=== PATIENT | female | born 1955 | race American Indian/Alaskan Native ===

== ENCOUNTER 2017-05-08 15:43 | Observation (INO) | payer BC ==
--- NOTE | 2017-05-08 16:14 | ED PDOC ---
Arrival/HPI - General Time Seen by Provider: 05/08/17 15:57 Historian: Patient - History of Present Illness Narrative History of Present Illness (Text): 05/08/17 16:01 61 y/o female, pmh including PE/DVT/Sarcoidosis/DM/HTN/CHF/, nkda, c/o coughing/ fatigue x 2-3 weeks. Pt. stated that she has chronic history of dvt/pe which she is on the coumadin for her entire life with the last INR between 2-3 about 1 week ago by a hematology/oncologist from [facility] [place]. Pt. stated that she has been coughing with clear and green phlegm for the past 2-3 weeks which she has been seen by Dr. Araujo which she completed the course of prednisone 20mg/daily and a cephalosporin oral antibiotic course at home with no relief, was feeling fatigue but no dizziness. Pt. stated that she does admits that her bilateral leg been accumulating fluids for the past 2-3 weeks as well but no calf pain, admits decrease appetize and decrease energy today which she feels dizziness earlier due to the decrease appetite, no palpitation, no chest pain, no night sweat, no rash, no other medical or psychological complaints. Past Medical History - Provider Review Nursing Documentation Reviewed: Yes - Pulmonary Hx Respiratory Disorders: Yes (sarcoidosis) Other/Comment: sarcoidosis - HEENT Hx Glaucoma: Yes (left eye) Other/Comment: sarcoid right eye - Endocrine/Metabolic Hx Diabetes Mellitus Type 2: Yes (BORDERLINE) - Hematological/Oncological Hx Anemia: Yes - Musculoskeletal/Rheumatological Hx Falls: No - Psychiatric Hx Depression: Yes Hx Substance Use: No - Surgical History Hx Cholecystectomy: Yes Other/Comment: - Suicidal Assessment Feels Threatened In Home Enviroment: No Family/Social History - Physician Review Nursing Documentation Reviewed: Yes Family/Social History: Unknown Family HX Smoking Status: Never Smoked Hx Alcohol Use: Yes (SOCIALLY) Hx Substance Use: No Allergies/Home Meds Allergies/Adverse Reactions: Allergies No Known Allergies Allergy (Verified 04/13/15 19:55) Home Medications: Home Meds Medication Instructions Recorded Confirmed Furosemide [Lasix] 20 mg PO DAILY 02/28/12 05/08/17 Folic Acid [Folic Acid] 1 mg PO DAILY 04/13/15 05/08/17 RX: Methotrexate Sodium 1 tab PO DAILY 04/13/15 05/08/17 [Rheumatrex] RX: Valsartan [Diovan] 160 mg PO DAILY 05/08/17 05/08/17 SITagliptin [Januvia] 1 tab PO DAILY 05/08/17 05/08/17 Review of Systems - Review of Systems Constitutional: Fatigue. absent: Fevers Eyes: absent: Vision Changes ENT: absent: Hearing Changes Respiratory: Cough, Sputum. absent: SOB, Wheezing Cardiovascular: Edema. absent: Chest Pain Gastrointestinal: absent: Abdominal Pain, Diarrhea, Nausea, Vomiting Skin: absent: Rash, Pruritis Neurological: absent: Headache, Dizziness, Focal Weakness, Gait Changes, Speech Changes Physical Exam Vital Signs Reviewed: Yes Vital Signs Temp Pulse Resp BP Pulse Ox 05/08/17 20:14 82 18 109/65 98 05/08/17 18:47 81 18 120/79 97 05/08/17 17:41 85 20 118/75 97 05/08/17 16:02 97.9 F 106 H 18 106/64 96 Temperature: Afebrile Blood Pressure: Normal Pulse: Tachycardic Respiratory Rate: Normal Appearance: Positive for: Well-Appearing, Non-Toxic, Comfortable Pain Distress: None Mental Status: Positive for: Alert and Oriented X 3 - Systems Exam Head: Present: Atraumatic, Normocephalic Pupils: Present: PERRL Extroacular Muscles: Present: EOMI Conjunctiva: Present: Normal Mouth: Present: Moist Mucous Membranes Neck: Present: Normal Range of Motion Respiratory/Chest: Present: Clear to Auscultation, Good Air Exchange. No: Respiratory Distress, Accessory Muscle Use Cardiovascular: Present: Regular Rate and Rhythm, Normal S1, S2, Other (1+ bilateral pedal edema). No: Murmurs Abdomen: Present: Normal Bowel Sounds. No: Tenderness, Distention, Peritoneal Signs, Rebound, Guarding Back: Present: Normal Inspection Upper Extremity: Present: Normal Inspection. No: Cyanosis, Edema Lower Extremity: Present: Normal Inspection. No: Edema Neurological: Present: GCS=15, Speech Normal, Motor Func Grossly Intact, Memory Normal, Other (no drift, normal finger to nose test, normal heel to garcia test. ) Skin: Present: Warm, Dry, Normal Color. No: Rashes Psychiatric: Present: Alert, Oriented x 3, Normal Insight, Normal Concentration Medical Decision Making ED Course and Treatment: 05/08/17 16:22 Pneumonia vs. CHF vs. Subtherapeutic INR induced worsening of the PE vs. URI -labs/bnp/cardiac enzyme/pt/ptt -ekg/cxr -cardiac monitor technician -observe and reassess 05/08/17 17:55 -NSR @ 97 BPM, no acute ST or T wave changes compared with previous ekg. -Chest x-ray: No acute infiltrate. Consistent with right paratracheal and bilateral hilar lymphadenopathy. -Labs are non-significant except BUN 26, INR 1.68. IVF @ 125cc/hr ordered. -INR is subtherapeutic 1.68, currently on coumadin 12mg and 6mg alternating every other day. -Pt. stated that she feels very fatigue and tired, too fatigue to walk and feels dizziness, feeling will pass out, unable to follow up with the pmd, will observe the patient over night. 05/08/17 19:05 - and the daughter is on the bed side with the patient, expressed my concern about the patient's status and recommend observation plan, pt. agreed to stay. -Pt. has on and off tachycardic, will put on the remote tele. 05/08/17 19:19 -UA show no UTI. -I spoke to Dr. Marmolejo about the case, labs/radiology result discussed, agreed that the patient needs to be observed. -I discussed with Dr. Green about case, and he agreed on the dispo. - Lab Interpretations Lab Results: 05/08/17 16:50 05/08/17 16:50 Lab Results 05/08/17 16:50: WBC 7.9 D, RBC 4.30, Hgb 13.3, Hct 39.8, MCV 92.6, MCH 30.9, MCHC 33.4, RDW 15.8 H, Plt Count 329, MPV 9.5, Gran % 48.1 L, Lymph % (Auto) 19.5 L, [place]ura % (Auto) 18.0 H, Eos % (Auto) 13.4 H, Baso % (Auto) 1.0, Gran # 3.78, Lymph # 1.5, Ventura # 1.4 H, Eos # 1.1 H, Baso # 0.08 05/08/17 16:50: Sodium 143, Potassium 4.3, Chloride 104, Carbon Dioxide 31, Anion Gap 12, BUN 26 H, Creatinine 1.3, Est GFR ( Amer) 50, Est GFR (Non- Af Amer) 42, Random Glucose 110, Calcium 9.7, Total Bilirubin 0.5, AST 41 H, ALT 45, Alkaline Phosphatase 88, Lactate Dehydrogenase 880 H, Total Creatine Kinase 136, Troponin I < 0.01 D, NT-Pro-B Natriuret Pep 40.7, Total Protein 8.0 , Albumin 3.9, Globulin 4.1, Albumin/Globulin Ratio 1.0 L 05/08/17 16:50: PT 18.1 H, INR 1.68 H, APTT 34.8 H 05/08/17 16:09: POC Glucose (mg/dL) 130 H I have reviewed the lab results: Yes Interpretation: Abnormal lab values (BUN 26, INR 1.68) - RAD Interpretation Radiology Orders: 05/08/17 16:14 CHEST PORTABLE [RAD] Stat Helicopter Repairer: Radiologist - EKG Interpretation EKG Interpretation (Text): 05/08/17 16:34 NSR @ 97 BPM, no acute ST or T wave changes compared with previous ekg. Interpreted by ED Physician: Yes Type: 12 lead EKG Comparison: Com.w/previous EKG - Medication Orders Current Medication Orders: Sodium Chloride (Sodium Chloride 0.9%) 1,000 mls @ 100 mls/hr IV .Q10H SINA Last Admin: 05/08/17 18:05 Dose: 100 mls/hr Discontinued Medications Albuterol Sulfate (Albuterol 0.083% Inhal Rita (2.5 Mg/3 Ml) Ud) 2.5 mg INH STAT STA Stop: 05/08/17 16:50 Last Admin: 05/08/17 18:04 Dose: - PA / [employer] BI DEVELOPER / Resident Statement MD/DO has reviewed & agrees with the documentation as recorded. Disposition/Present on Arrival - Present on Arrival Any Indicators Present on Arrival: No History of DVT/PE: Yes History of Uncontrolled Diabetes: No Urinary Catheter: No History of Decub. Ulcer: No History Surgical Site Infection Following: None - Disposition Have Diagnosis and Disposition been Completed?: Yes Diagnosis: Dehydration, Fatigue, Subtherapeutic international normalized ratio (INR), Cough Disposition: HOSPITALIZED Disposition Time: 17:58 Patient Plan: Observation, Telemetry Patient Problems: Current Active Problems Problem Status Onset Dehydration Acute Fatigue Acute Subtherapeutic international normalized ratio (INR) Acute Cough Acute Condition: STABLE
[2017-05-08 16:25] VITALS: BMI 40.7
[2017-05-08 17:05] LABS: BASO # 0.08 K/mm3 (0.0-2.0); EOS # 1.1 (0.0-0.7); EOS % 13.4 % (1.5-5.0); GRAN # 3.78 (1.4-6.5); GRAN % 48.1 % (50.0-68.0); HEMATOCRIT 39.8 % (36.0-48.0); LYMPH # 1.5 (1.2-3.4); LYMPH % 19.5 % (22.0-35.0); MEAN CELL VOLUME 92.6 fl (80.0-105.0); MEAN CORPUSCULAR HEMOGLOBIN 30.9 pg (25.0-35.0); MEAN CORPUSCULAR HGB CONC 33.4 g/dl (31.0-37.0); MEAN PLATELET VOLUME 9.5 fl (7.0-11.0); MONO # 1.4 (0.1-0.6); RED CELL DISTRIBUTION WIDTH 15.8 % (11.5-14.5); WHITE BLOOD COUNT 7.9 10^3/ul (4.5-11.0)
[2017-05-08] MEDS: Albuterol 0.083% Inhal Sol (2.5 mg/3 mL) UD INH STA ×2 (17:09→18:04)
[2017-05-08 17:11] LABS: ALKALINE PHOSPHATASE 88 U/L (38-126); ALT/SGPT 45 U/L (7-56); AST/SGOT 41 U/L (14-36); BILIRUBIN,TOTAL 0.5 mg/dL (0.2-1.3); BLOOD UREA NITROGEN 26 mg/dL (7-21); CALCIUM 9.7 mg/dL (8.4-10.5); CARBON DIOXIDE 31 mmol/L (21-33); CHLORIDE 104 mmol/L (98-107); GFR AFRICAN-AMERICAN 50; GLUCOSE,RANDOM 110 mg/dL (70-110); POTASSIUM 4.3 mmol/L (3.6-5.0); SODIUM 143 mmol/L (132-148)
--- NOTE | 2017-05-08 17:13 | CARD ---
APPROVED REPORT EKG Measurement Heart [id number] <Conclusion> Normal sinus rhythm Right bundle branch block Left anterior fascicular block Bifascicular block Abnormal ECG
[2017-05-08 17:22] LABS: INR 1.68 (0.93-1.08); PARTIAL THROMBOPLASTIN TIME 34.8 Seconds (23.7-30.8)
[2017-05-08 17:23] LABS: TROPONIN I < 0.01 ng/mL
--- NOTE | 2017-05-08 17:39 | RAD ---
HISTORY: cough x 2-3 weeks COMPARISON: 04/13/2015 FINDINGS: LUNGS: No infiltrate. PLEURA: No significant pleural effusion identified, no pneumothorax apparent. CARDIOVASCULAR: Normal heart size. Suspect right paratracheal and bilateral hilar lymphadenopathy. OSSEOUS STRUCTURES: No significant abnormalities. VISUALIZED UPPER ABDOMEN: Normal. OTHER FINDINGS: None. IMPRESSION: No acute infiltrate. Consistent with right paratracheal and bilateral hilar lymphadenopathy.
[2017-05-08] MEDS: Sodium Chloride 0.9% 1,000 ML IV SCH (18:05)
[2017-05-08 19:45] LABS: URINE BILIRUBIN NEGATIVE (NEGATIVE); URINE BLOOD NEGATIVE (NEGATIVE); URINE GLUCOSE (UA) NEGATIVE (NEGATIVE); URINE KETONE NEGATIVE (NEGATIVE); URINE LEUKOCYTE ESTERASE NEGATIVE Leu/uL (NEGATIVE); URINE PROTEIN NEGATIVE mg/dL (<30 mg/dL); URINE UROBILINOGEN 0.2 E.U./dL (<1 E.U./dL)
[2017-05-08 19:46] LABS: URINE APPEARANCE CLEAR (CLEAR); URINE COLOR YELLOW (YELLOW)
[2017-05-08] MEDS ORDERED: Promethazine 6.25 MG/5 ML CUP PO PRN (21:48)
[2017-05-09 03:36] VITALS: RESP 20
[2017-05-09 06:46] LABS: ALB/GLOB RATIO 0.9 (1.1-1.8); BILIRUBIN,TOTAL 0.4 mg/dL (0.2-1.3); CALCIUM 9.1 mg/dL (8.4-10.5); POTASSIUM 4.1 mmol/L (3.6-5.0); TOTAL PROTEIN 6.8 g/dL (5.8-8.3)
[2017-05-09] MEDS: Sodium Chloride 0.9% 1,000 ML IV SCH (06:51)
[2017-05-09 06:52] LABS: HEMATOCRIT 36.4 % (36.0-48.0); MEAN CELL VOLUME 92.9 fl (80.0-105.0); MEAN CORPUSCULAR HEMOGLOBIN 30.4 pg (25.0-35.0); MEAN CORPUSCULAR HGB CONC 32.7 g/dl (31.0-37.0); MEAN PLATELET VOLUME 9.5 fl (7.0-11.0); RED CELL DISTRIBUTION WIDTH 16.2 % (11.5-14.5)
[2017-05-09] MEDS: cefTRIAXone 1 gm 1 GM/100 ML BAG IVPB SCH (10:05)
[2017-05-09] MEDS: Promethazine 6.25 MG/5 ML CUP PO SCH ×3 (10:08→17:45)
[2017-05-09] MEDS: Albuterol-Ipratrop 3 mg / 0.5 (3 ml) UD IH SCH ×2 (13:33→20:20)
[2017-05-09] MEDS ORDERED: Enoxaparin 100 mg Syringe SC SCH (15:30)
--- NOTE | 2017-05-09 16:34 | NM ---
VQ scan Technique: 33.0 mCi technetium 99-m technetium 99 M DTPA aerosol. 4.0 mCI technetium 99-m MAA administered intravenously. Comparison: Correlation is made to chest x-ray performed 05/08/17 Findings: Limited study with 4 projections obtained. Hilar clumping of radiotracer may represent underlying COPD. Large ventilation and perfusion defect evident within the right mid lung zone, likely right middle lobe; this defect appears larger on the ventilation portion of the examination. Diminished ventilation is noted at the left lung base without associated perfusion abnormality. No mismatched perfusion defects appreciated. Mild tracheal activity related to the DTPA incidentally noted. Impression: Low probability for pulmonary embolus. Preliminary impression was provided by virtual radiologic.
--- NOTE | 2017-05-09 20:15 | CON ---
DATE: 05/09/2017 PULMONARY CONSULTATION LOCATION: Room 361, bed 2. HISTORY OF PRESENT ILLNESS: The patient is a gianna 61-year-old woman, she has had a history of sarcoidosis, diabetes mellitus, hypertension and congestive heart failure in the past. She also a history of sarcoidosis. She most recently had DVT and pulmonary emboli. She presents to the emergency room today with coughing and fatigue for several weeks. She is on Coumadin for her history of DVT and PE. She has been coughing green and clear phlegm for several weeks as described above. She received prednisone and antibiotics as an outpatient without relief. It is unclear whether there is leg discomfort or not. The chest pain is plus/minus. There are no palpations. She feels weak and unable to carry at her normal activities. PAST MEDICAL HISTORY: Has been described above. FAMILY HISTORY: Negative. SOCIAL HISTORY: Never smokes. No social drinking. No substance abuse. Travel history positive. ALLERGIES: NONE. HOME MEDICATIONS: Lasix, methotrexate, Diovan and Januvia. REVIEW OF SYSTEMS: 1. Diabetes mellitus. 2. Pain from the joints for rheumatologic reasons and/or sarcoidosis. 3. Sarcoidosis. 4. COPD/asthma ? no PFT is noted in the records. PHYSICAL EXAMINATION: GENERAL: She is resting comfortably, tachypneic, with no fever. VITAL SIGNS: Pulse is 90, respiratory rate is 18 to 20, blood pressure is 110/70. HEENT: EYES: PERRLA. EOM is full. Conjunctivae pink. Mucous membranes are injected. NECK: Supple. No JVD. No lymphadenopathy. No bruit. No thyromegaly. No mass. RESPIRATORY AND CHEST: Scattered wheezes throughout both lung bustos, questionable rales. CARDIOVASCULAR: Regular rhythm. S1 and S2, gallop auscultated. ABDOMEN: Soft. Bowel sounds are normoactive, obese. No distention. EXTREMITIES: Revealed no clubbing, cyanosis. There is trace edema. NEUROLOGIC: No focal findings. Lymphadenopathy is not present in the cervical, inguinal, or axillary areas. No supraclavicular masses are noted in that area. LABORATORY STUDIES: At this time, shows the followin. Chest x-ray is not clear, it is underpenetrated, it has what might be consistent to be atelectasis bilaterally or pulmonary vascular congestion. The portable chest x-ray is at poor quality. 2. Laboratory studies show a white count of 6000, hemoglobin of 11.9. INR of 1.68. Sodium 143, BUN 26 to 23. Liver functions: AST 41 decreasing to 30. BMP 40.7. EKG sinus rhythm, nonspecific ST-T wave changes. CLINICAL DIAGNOSES INCLUDE: 1. Respiratory insufficiency. 2. Abnormal chest x-ray, pneumonia versus congestive heart failure versus atelectasis versus recurrent pulmonary emboli. 3. Sarcoidosis. 4. Cardiomegaly. 5. Acute bronchospasm on inhaled bronchodilators, we will add low dose corticosteroid. Overall conditions are have multiple comorbidities. Etiology is not acutely clear at this time, must consider pneumonitis, bronchitis, congestive hear failure, sarcoidosis, atelectasis, recurrent pulmonary embolism, COPD. She will need appropriate workup and treatment. PLAN: In addition to the studies already requested. I have ordered a D-dimer, VQ and bilateral venous Dopplers. The patient should have a good chest x-ray PA and lateral. We will see how is she responds to the current medications and discuss with primary doctor Dr. García, once his note is noted on the chart and orders are placed, when Dr. Araujo returns from vacation, I would like to discuss a longtime treatment of her COPD and sarcoidosis. She requires a new pulmonary function study to evaluate her respiratory status. She will also need to lose a great deal of weight. I would suggest just some clinical habitus, a home polysomnography, I believe that when she is a little more stable, I will ask her more questions and suspect that there is a sleep apnea component to her situation as well. Nothing can be done at this time however. We will see her again in the morning and see how she feels and decide a further intervention is required. Thank you for the opportunity to see this patient. We will follow closely with you. Dakotah Velasquez MD
[2017-05-09] MEDS: Enoxaparin 100 mg Syringe SC SCH (21:46)
--- NOTE | 2017-05-10 06:33 | HP ---
HISTORY OF PRESENT ILLNESS: This is a 61-year-old female who has come into the hospital with cough and fatigue for the past 2 to 3 weeks. She says that her symptoms have become worse. She was not able to see her primary doctor. She has a history of sarcoidosis and has been following with her doctor in [place]. She has no headaches, dizziness, or nausea. She has a history of DVT and PE, hypertension. She had completed a dose of prednisone as well as antibiotics, but did not have much relief. She has been complaining of lower extremity swelling. She has no fevers or chills. No nausea, no vomiting. No abdominal pain or back pain. No dysuria, frequency. REVIEW OF SYSTEMS: All the review of systems are within normal limits except as mentioned. PAST MEDICAL HISTORY: 1. Hypertension. 2. Borderline diabetes. 3. Sarcoidosis. 4. Cutaneous lesions in her eyes secondary to sarcoid. FAMILY HISTORY: Noncontributory. SOCIAL HISTORY: She is . She denies smoking or alcohol. She has been seeing Dr. Velasquez. HOME MEDICATIONS: Lasix, folic acid, methotrexate, Diovan, Januvia. PHYSICAL EXAMINATION VITAL SIGNS: Temperature is 98.4, pulse of 93, blood pressure is 123/78, respirations 20, O2 saturation 97%. Height is 5 feet 7 inches, weight is 220 pounds. BMI is 34.5. GENERAL: The patient is lying in bed, flat, and in no apparent distress. HEAD AND NECK EXAM: Atraumatic, normocephalic. Conjunctivae are pink. Throat is clear and mouth with moist mucosa. Oropharynx is benign. EYES: Extraocular movements are intact. PERRLA. NECK: Supple. No JVD, thyromegaly, or adenopathy. No bruits. HEART: S1 and S2 regular rate and rhythm. No murmurs, rubs, or gallops. LUNGS: Clear to auscultation bilaterally. No wheezing, rales, or rhonchi appreciated. No retractions on exam. ABDOMEN: Soft, nontender, and nondistended. Bowel sounds are positive in all quadrants. No rebound. No hepatosplenomegaly. EXTREMITIES: No cyanosis, clubbing, or edema. NEUROLOGIC: No facial asymmetry. Tongue is midline. No uvula deviation. Power is 5/5 in upper extremity and 5/5 in lower extremity. Sensation is normal in upper extremities and lower extremities. PSYCHIATRIC: Awake, alert, oriented x3. No anxiety or depression symptoms. Good insight. Normal affect. GENITOURINARY: No CVA tenderness. VASCULAR: 2+ pulses in carotid and pedal pulses. SKIN: No erythema or abnormal nodules noted. SPINE: Normal curvature. LYMPHADENOPATHY: No anterior cervical or posterior cervical adenopathy. No inguinal adenopathy. LABORATORY DATA: There is a white count of 7.9, hemoglobin 13.3, platelet count is 329. The patient's INR is 1.68. Chemistry showed creatinine is 1.3, troponin 0.01, albumin is 3.2. Urine shows blood is negative, nitrites are negative. V/Q scan is pending as well as lower extremity . Chest x-ray showed no acute infiltrates. There is bilateral hilar adenopathy. EKG showed sinus rhythm at 97, right bundle-branch block. ASSESSMENT: 1. Acute sarcoidosis. 2. Deep venous thrombosis/pulmonary embolism. 3. Mediastinal adenopathy. 4. Diabetes type 2. 5. Hypertension. PLAN: The patient is currently comfortable. She is on Losartan for hypertension, this we are going to continue. She is on Januvia for diabetes, I will continue that. She has been placed on methylprednisolone. The patient is on Rocephin for antibiotics. She has Dopplers that are pending. I will also order Lovenox as she is subtherapeutic on her Coumadin. Sohail García MD
[2017-05-10] MEDS: Albuterol-Ipratrop 3 mg / 0.5 (3 ml) UD IH SCH ×2 (08:13→13:50)
[2017-05-10 08:58] VITALS: PULSE 84; TEMP 98.4; O2SAT 98
[2017-05-10] MEDS: Enoxaparin 100 mg Syringe SC SCH (09:46)
[2017-05-10] MEDS: Promethazine 6.25 MG/5 ML CUP PO SCH (09:47)
[2017-05-10] MEDS: cefTRIAXone 1 gm 1 GM/100 ML BAG IVPB SCH (09:47)
[2017-05-10 09:52] VITALS: BP 148/78
--- NOTE | 2017-05-10 11:47 | US ---
HISTORY: Leg pain and swelling. Evaluate for DVT PHYSICIAN(S): Quincy Sorto MD. TECHNIQUE: Duplex sonography and color-flow Doppler with graded compression were used to evaluate the deep venous systems of both lower extremities. The exam is limited by body habitus and edema. The lower femoral veins and tibial veins are not well seen FINDINGS: The visualized deep venous systems of both lower extremities are sonographically normal and compressible. Normal wave forms and augmentation are seen. There is no sonographic evidence for deep venous thrombosis in the visualized segments of both lower extremities. IMPRESSION: No sonographic evidence for deep venous thrombosis in the visualized segments of both lower extremities. Limited study
--- NOTE | 2017-05-11 00:26 | DS ---
HISTORY OF PRESENT ILLNESS: The patient has no complains of any chest pain or shortness of breath. She states her cough symptoms are better. Her breathing is better. She is comfortable with going home today. She was seen by Dr. Velasquez from pulmonary. PHYSICAL EXAMINATION: VITAL SIGNS: Temperature 98.4, pulse of 84, blood pressure 148/78 and respirations 20. GENERAL: The patient is lying in bed, flat, comfortable. HEENT: No oral lesion. Anicteric sclerae. Moist mucosa. NECK: No JVD, adenopathy, or thyromegaly. CARDIOVASCULAR: S1 and S2, regular. No murmurs, rubs, or gallops. LUNGS: Clear to auscultation bilaterally. No wheeze, rales, or rhonchi. ABDOMEN: Bowel sounds are positive, soft, nontender and nondistended. EXTREMITIES: No cyanosis, clubbing or edema. LABORATORY DATA: White count of 6.0 and hemoglobin 11.9. Creatinine is 1.3. ASSESSMENT: 1. Acute sarcoidosis. 2. Deep venous thrombosis/pulmonary embolism on anticoagulation. 3. Mediastinal adenopathy. 4. Diabetes type II. 5. Hypertension. 6. Cough. 7. Viral infection. PLAN: The patient was given Coumadin last night because she was subtherapeutic. She was also given Lovenox yesterday and today. The patient is on Januvia for her diabetes. She is using steroids. She is on Rocephin for antibiotics. The patient is on heart healthy diet. She had a VQ scan done yesterday that shows low probability for pulmonary embolism. The patient is going to be discharged home to follow as an outpatient. Condition is stable. Activities increased as tolerated. DISCHARGE MEDICATIONS: Augmentin and prednisolone. She is going to increase her dose of Coumadin for two more days and then go back to her regimen and follow up with her primary care doctor for her INR check. Sohail García MD
== END 2017-05-10 14:36 | disposition home or self-care (01) ==
LOC: ED 15:43 → ERH 19:24 → 3RNO 20:22
PROVIDERS: ADMIT Internal Medicine Nephrology; ATTEND Internal Medicine Nephrology
DX: D86.9 Sarcoidosis, unspecified (principal); E86.0 Dehydration; E11.9 Type 2 diabetes mellitus without complications; I11.0 Hypertensive heart disease with heart failure; I50.9 Heart failure, unspecified; B34.9 Viral infection, unspecified; R59.0 Localized enlarged lymph nodes; R05 Cough; H40.9 Unspecified glaucoma; Z86.711 Personal history of pulmonary embolism; Z86.718 Personal history of other venous thrombosis and embolism; Z79.01 Long term (current) use of anticoagulants
CPT/HCPCS: 36415; 71010; 78582; 80053; 81003; 82550; 82948; 83615; 83880; 84484; 85025; 85027; 85378; 85610; 85730; 87070; 93005; 93970; 94640; 96365; 96366; 96372; 99285; A9540; G0378; J0696; J1650; J7040; J7509